=== PATIENT | male | born 1965 ===

== ENCOUNTER 2022-04-24 16:53 | Emergency (ER) | payer SELFPAY ==
[~2022-04-24] VITALS: Ht 177.8 cm; Wt 118.8 kg
== END 2022-04-24 18:57 | disposition left against medical advice (07) ==
LOC: ER 16:53 → EDBD 16:53 → ER 18:57
DX: R55 Syncope and collapse (principal); Z53.21 Procedure and treatment not carried out due to patient leaving prior to being seen by health care provider
CPT/HCPCS: 99282-25